=== PATIENT | male | born 1965 | race Caucasian/White ===

== ENCOUNTER 2016-07-13 16:43 | Emergency (ER) | payer MEDICAID ==
--- NOTE | 2016-07-13 18:31 | ER PHYSICIAN DOCUMENTATION ---
Physician Documentation [facility] Name:Mitchell Cook Age:50 yrs Sex:Male :1965 Arrival Date:07/13/2016 Time:16:43 BedTrauma-C Private MD: Fish Kenyon Disposition: 07/13/16 17:58 Discharged to Home/Self Care. Impression: Abrasion, Rotator Cuff Injury, Internal Derangement of Knee, Rib Fracture. - Condition is Good. - Discharge Instructions: ABRASION, KNEE PAIN, Meniscus Injury (possible), ROTATOR CUFF TEAR, RIB FRACTURE - FRACTURE, Rib. - Prescriptions for Hydrocodone- Acetaminophen 5-325 mg Oral Tablet - take 1 tablet by ORAL route every 6 hours As needed; 20 tablet. - Medical Reconciliation form form. - Follow up: Private Physician; When: 2 - 3 days; Reason: Recheck today's complaints. - Problem is new. - Symptoms have improved. HPI: 07/13 17:47 This 50 yrs old Male presents to ER via Walk In with complaints of Fall sc Injury. 17:47 Details of fall: The patient fell from a height, from a ladder, approximately 8 feet, sc from an upright position, while standing. Onset: The symptom(s)/episode began/occurred 2 hour(s) ago. Associated injuries: The patient sustained injury to the chest, contusion, pain with breathing, right arm and anterior aspect of right shoulder, right knee, painful injury. Associated signs and symptoms: The patient has no apparent associated signs or symptoms, Pertinent positives: had alcohol and mj after fall, now increasing soreness right arm and left ribs, Loss of consciousness: the patient experienced no loss of consciousness. history of pt on right knee. Historical: - Allergies: No known drug Allergies; - Home Meds: 1. None - PMHx: knee injury; - PSHx: None; - Tetanus: < 10 years < 10 years. - Ebola Screening: : Patient negative for fever greater than or equal to 101.5 degrees Fahrenheit, and additional compatible Ebola Virus Disease symptoms. Patient denies exposure to infectious person. Patient denies travel to an Ebola-affected area in the 21 days before illness onset. No symptoms or risks identified at this time. . - Immunization history: Flu Vaccine None. - Social history: Smoking status: Patient uses tobacco products, current every day smoker. Patient uses alcohol on a daily basis. admits to "couple of beers" a day. and shots daily. street drugs, marijuana. ROS: 17:50 Constitutional: Negative for fever, chills, and weight loss. sc Eyes: Negative for injury, pain, redness, and discharge. ENT: Negative for injury, pain, and discharge. Neck: Negative for injury, pain, and swelling. Cardiovascular: Negative for chest pain, palpitations, and edema. Abdomen/GI: Negative for abdominal pain, nausea, vomiting, diarrhea, and constipation. Back: Negative for injury and pain. Skin: Negative for injury, rash, and discoloration. 17:50 Neuro: Negative for headache, weakness, numbness, tingling, and seizure. sc 17:50 Respiratory: Positive for slt pain with palp or deep breathing. 17:50 MS/extremity: Positive for injury or acute deformity, abrasion, pain. Exam: Constitutional: This is a well developed, well nourished patient who is awake, alert, and in no acute distress. Head/Face: Normocephalic, atraumatic. Eyes: Pupils equal round and reactive to light, extra-ocular motions intact. Lids and lashes normal. Conjunctiva and sclera are non-icteric and not injected. Cornea within normal limits. Periorbital areas with no swelling, redness, or edema. ENT: Nares patent. No nasal discharge, no septal abnormalities noted. Tympanic membranes are normal and external auditory canals are clear. Oropharynx with no redness, swelling, or masses, exudates, or evidence of obstruction, uvula midline. Mucous membranes moist. Neck: Trachea midline, no thyromegaly or masses palpated, and no cervical lymphadenopathy. Supple, full range of motion without nuchal rigidity, or vertebral point tenderness. No meningismus. Cardiovascular: Regular rate and rhythm with a normal S1 and S2. No gallops, murmurs, or rubs. Normal PMI, no JVD. No pulse deficits. Respiratory: Lungs have equal breath sounds bilaterally, clear to auscultation and percussion. No rales, rhonchi or wheezes noted. No increased work of breathing, no retractions or nasal flaring. Abdomen/GI: Soft, non-tender, with normal bowel sounds. No distension or tympany. No guarding or rebound. No evidence of tenderness throughout. 17:51 Back: No spinal tenderness. No costovertebral tenderness. Full range of motion. sc 17:51 Musculoskeletal/extremity: Extremities: grossly normal except: noted in the right arm and anterior aspect of right shoulder: abrasion, tenderness, noted in the right knee: pain, ROM: intact in all extremities, full active range of motion, full passive range of motion, Circulation is intact in all extremities. Sensation intact. Joints: the right knee displays ligament laxity. 17:51 Neuro: Orientation: is normal, Mentation: is normal, Cranial nerves: CN II- XII are normal as tested, Gait: is steady. Vital Signs: 17:05 BP 153 / 95; Pulse 87; Resp 18; Temp 98.3; Pulse Ox 95% on R/A; Weight 102.06 kg; mk2 Height 5 ft. 5 in. (165.10 cm); Pain 8/10; 18:30 BP 142 / 64; Pulse 71; Resp 15; Temp 98.2; Pulse Ox 95% on R/A; Pain 6/10; mk2 17:05 Body Mass Index 37.44 (102.06 kg, 165.10 cm) mk2 MDM: 16:45 Patient medically screened. sc 17:53 Differential diagnosis: abrasion, multiple trauma, sprain, strain. Data reviewed: vital sc signs, nurses notes, old medical records, radiologic studies, and as a result, I will discharge patient. Counseling: I had a detailed discussion with the patient and/or guardian regarding: the historical points, exam findings, and any diagnostic results supporting the discharge/admit diagnosis, the need for outpatient follow up, to return to the emergency department if symptoms worsen or persist or if there are any questions or concerns that arise at home. 07/14 11:44 Order name: CXR 2V [id number] EDMS 07/14 11:44 Order name: SHOULDER; 2V+ [place] [id number] EDMS 07/14 11:44 Order name: KNEE; [address] [place] [id number] EDMS Dispensed Medications: No medications were administered Point of Care Testing: Urine Dip: 18:09 pH: 6; ; Specific [place]: 1.005; Ketones: Negative; Glucose: Negative; Protein: mk2 Negative; Leukocytes: Negative; Nitrite: Negative ; Blood: Non Hemolyzed Trace; Bilirubin: Negative ; Urobilinogen: Normal Signatures: Fish Berg MD MD sc Kruger, Caridad, RN RN mk2
--- NOTE | 2016-07-13 18:31 | ER NURSING DOCUMENTATION ---
Nurse's Notes [facility] Name:Mitchell Cook Age:50 yrs Sex:Male :1965 Arrival Date:07/13/2016 Time:16:43 BedTrauma-C Private MD: Diagnosis:Abrasion;Rotator Cuff Injury;Internal Derangement of Knee;Rib Fracture Presentation: 07/13 16:58 Acuity: MARIA E 2 tg 16:59 Presenting complaint: Patient states: I fell 8 feet and I think I landed on my feet but 2 I'm not sure if I lost consciousness or not. 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 Then I self medicated and had 2 beers, 2 shots and marajuana. Care prior to arrival: None. Mechanism of Injury: Fall 8 feet off a low roof onto the ground. Trauma event details: Injury occurred in the [facility]. 16:59 Method Of Arrival: Walk In [facility] 18:31 Transition of care: Home. [facility] Triage Assessment: 17:02 General: Appears uncomfortable, Behavior is cooperative, pleasant. Pain: Complains of mk2 pain in anterior aspect of right shoulder and R knee. Pt was able to remove shirt himself with full rom and pt walked into room with discomfort in the R knee. Pain currently is 8 out of 10 on a pain scale. Neuro: No deficits noted. Level of Consciousness is awake, alert, Oriented to person, place, time, event, Pupils are PERRLA, constricted. Cardiovascular: Heart tones S1 S2 Rhythm is regular. Respiratory: Breath sounds are clear bilaterally. Derm:. Injury Description: Abrasion sustained to palmar aspect of right forearm that will require irrigation and a dressing and abrasions to both knees. Back and buttocks are unremarkable. 17:08 EENT: No deficits noted. Musculoskeletal: Denies Pt denies weakness, back pain or c mk2 spine tenderness. Historical: - Allergies: No known drug Allergies; - Home Meds: 1. None - PMHx: knee injury; - PSHx: None; - Tetanus: < 10 years < 10 years. - Ebola Screening: : Patient negative for fever greater than or equal to 101.5 degrees Fahrenheit, and additional compatible Ebola Virus Disease symptoms. Patient denies exposure to infectious person. Patient denies travel to an Ebola-affected area in the 21 days before illness onset. No symptoms or risks identified at this time. . - Immunization history: Flu Vaccine None. - Social history: Smoking status: Patient uses tobacco products, current every day smoker. Patient uses alcohol on a daily basis. admits to "couple of beers" a day. and shots daily. street drugs, marijuana. Screenin:05 Infectious Disease Risk None. Abuse screen: Denies threats or abuse. Nutritional 2 screening: No deficits noted. 18:31 Tuberculosis screening: No symptoms or risk factors identified. 2 Primary Survey: 18:30 Airway: patent. Breathing/Chest: Respiratory pattern: regular, Respiratory effort: mk2 spontaneous, unlabored. Circulation: Pulses: equal and strong. Assessment: 17:05 See Triage Assessment done by same RN. 2 Vital Signs: 17:05 BP 153 / 95; Pulse 87; Resp 18; Temp 98.3; Pulse Ox 95% on R/A; Weight 102.06 kg; mk2 Height 5 ft. 5 in. (165.10 cm); Pain 8/10; 18:30 BP 142 / 64; Pulse 71; Resp 15; Temp 98.2; Pulse Ox 95% on R/A; Pain 6/10; mk2 17:05 Body Mass Index 37.44 (102.06 kg, 165.10 cm) 2 ED Course: 16:44 Patient arrived in ED. cj 16:45 Fish Berg MD is Attending Physician. sc 16:57 Sammy Renee, RN is Primary Nurse. tg 16:58 Triage completed. tg 16:59 Primary Nurse role handed off by Sammy Renee RN [facility] 16:59 Caridad Blackwell, ANABELLE is Primary Nurse. 2 17:05 Arm band placed on Bed in low position Call Light in Reach Gowned HOB Elevated Side 2 rails up x1. 17:[address] with patient. court recording monitor on. Pulse ox on. NIBP on. Verbal [facility] reassurance given. 17:19 xray is in OR and states it will at least be an hour [employer]. mk2 18:29 Wound care was cleaned with Hibiclens, Irrigation Normal Saline dressed with bacitracin 2 Kerlix. Administered Medications: No medications were administered Point of Care Testing: Urine Dip: 18:09 pH: 6; ; Specific [place]: 1.005; Ketones: Negative; Glucose: Negative; Protein: mk2 Negative; Leukocytes: Negative; Nitrite: Negative ; Blood: Non Hemolyzed Trace; Bilirubin: Negative ; Urobilinogen: Normal Outcome: 17:58 Discharge ordered by MD. fuller 18:30 Discharged to home ambulatory. mk2 18:30 Condition: improved 18:30 Discharge instructions given to patient, family, Instructed on discharge instructions, follow up and referral plans. medication usage, no drinking with medication, no driving heavy equipment, Prescriptions given X 1. 18:31 Patient left the ED. mk2 07/14 16:09 Discharge F/U Call: Unable to reach: left voicemail: mk2 Signatures: Sammy Renee RN RN Fish Mercado MD MD sc Kruger, Meg, RN RN Flor Fonseca
--- NOTE | 2016-07-14 11:04 | RADIOLOGY REPORT ---
Two views of the chest demonstrate a limited degree of inspiration. Considering this the heart, vessels and lungs are unremarkable. No infiltrate, fluid or pneumothorax is seen. IMPRESSION: Unremarkable limited inspiration views of the chest. MTDD
--- NOTE | 2016-07-14 11:05 | RADIOLOGY REPORT ---
Three views of the right shoulder demonstrate no displaced fracture or dislocation. Limited views of the joints are unremarkable. IMPRESSION: No displaced injury is identified. If clinically indicated, further evaluation and/or follow-up may be of benefit. FADY
--- NOTE | 2016-07-14 11:06 | RADIOLOGY REPORT ---
Three views of the right knee are correlated with MRI scan dated 04/29/2015. No acute fracture or dislocation is identified. The visualized joints appear unremarkable. Post traumatic soft tissue calcification is seen adjacent to the medial femoral epicondyle. No other change is identified. IMPRESSION: Medial soft tissue calcification consistent with the known prior medial collateral ligament injury. No acute displaced injury is identified. If clinically indicated, further evaluation and/or follow-up may be of benefit. MTDD
== END 2016-07-13 18:31 | disposition home or self-care (01) ==
LOC: ER 16:43
DX: S49.81XA Other specified injuries of right shoulder and upper arm, initial encounter (principal); M23.91 Unspecified internal derangement of right knee; S20.219A Contusion of unspecified front wall of thorax, initial encounter; S80.211A Abrasion, right knee, initial encounter; S80.212A Abrasion, left knee, initial encounter; S50.811A Abrasion of right forearm, initial encounter; W11.XXXA Fall on and from ladder, initial encounter; Y92.018 Other place in single-family (private) house as the place of occurrence of the external cause; Y93.H9 Activity, other involving exterior property and land maintenance, building and construction
CPT/HCPCS: 71020; 99284